=== PATIENT | female | born 1985 | race Caucasian/White ===

== ENCOUNTER 2019-12-23 08:02 | Emergency (ER) | payer SELFPAY ==
[~2019-12-23] VITALS: Ht 157.5 cm; Wt 59.6 kg
[~2019-12-23 08:02] MED LIST: ASPIRIN 81M81 MG/TA2 PO; CEFTIN 250250 MG/TAB PO; CEPHALEXIN500 M1 PO; FLEXERIL 1010 MG/TAB PO; LOVENOX 3030 MG/0.3 SQ; MOTRIN 600600 MG/TAB PO; NO HOME MEDICATIONS; PERCOCET 325 MG1 TA2 PO; PRENATAL VITAMI1 TA5 PO; PRENATAL1 TA3 PO
[2019-12-23 08:20] VITALS: BP 116/73
[2019-12-23] MEDS ORDERED: TAMIFLU 75MG75 MG PO (10:34)
[2019-12-23 10:50] VITALS: PULSE 89; TEMP 99.2
== END 2019-12-23 10:50 | disposition home or self-care (01) ==
LOC: COL.ER 08:02
DX: J10.1 Influenza due to other identified influenza virus with other respiratory manifestations (principal); Z86.718 Personal history of other venous thrombosis and embolism; Z98.890 Other specified postprocedural states; Z79.82 Long term (current) use of aspirin